=== PATIENT | male | born 1985 | race American Indian/Alaskan Native ===

== ENCOUNTER 2020-02-03 21:42 | Emergency (ER) | payer SELFPAY ==
[2020-02-03 21:51] VITALS: BP 127/71
--- NOTE | 2020-02-03 22:44 | Event Note ---
ED Screening Note Date of service: 02/03/20 Time: 22:39 ED Screening Note: This is a 34 y.o. M. that presents to the ER with vomiting since 2 AM this morning. Reports hemoptysis x 2 times. Denies pain, fever, chills, diarrhea, abdominal pain, tarry stools, and sore throat. This initial assessment/diagnostic orders/clinical plan/treatment(s) is/are subject to change based on patients health status, clinical progression and re- assessment by fellow clinical providers in the ED. Further treatment and workup at subsequent clinical providers discretion. Patient/guardian urged not to elope from the ED as their condition may be serious if not clinically assessed and managed. Initial orders include: Labs CXR
== END 2020-02-03 22:50 | disposition left against medical advice (07) ==
LOC: ED 21:42
DX: R11.2 Nausea with vomiting, unspecified (principal); R05 Cough; Z53.21 Procedure and treatment not carried out due to patient leaving prior to being seen by health care provider